=== PATIENT | female | born 1995 | race Caucasian/White ===

== ENCOUNTER 2016-08-13 09:17 | Inpatient (IN) | payer OTHER ==
[2016-08-13] VITALS (13 sets, daily range): BP systolic 91–126; BP diastolic 52–76; PULSE 62–99; RESP 18–20; Ht 152.4 cm; Wt 60.5 kg
[~2016-08-13] VITALS: Ht 152.4 cm; Wt 60.5 kg
[~2016-08-13 09:17] MED LIST: ACET-141 PO; IBUP-1542 PO; PREN1TAB62 PO
[2016-08-13] MEDS ORDERED: OXYTOCIN 30 UNITS/LR 500 ML IV PRN ×3 (09:30→17:30)
[2016-08-13] MEDS ORDERED: CEFAZOLIN 2 GM/50 ML (PMX) 50 ML IV SCH (09:30)
[2016-08-13] MEDS ORDERED: METHYLERGONOVINE 0.2 MG INJ IM PRN ×3 (09:30→17:30)
[2016-08-13] MEDS ORDERED: MISOPROSTOL 200 MCG TAB PR PRN ×3 (09:30→17:30)
[2016-08-13] MEDS ORDERED: OXYTOCIN 30 UNITS/LR 500 ML IV SCH ×2 (09:30→16:27)
[2016-08-13] MEDS ORDERED: CARBOPROST 250 MCG INJ IM PRN ×3 (09:30→17:30)
[2016-08-13 10:06] LABS: BASOPHILS % 0.2 % (0.0-2.0); EOSINOPHILS # 0.1 10^3/ul (0.0-0.5); EOSINOPHILS % 1.5 % (0.0-7.0); HEMATOCRIT 30.1 % (37.0-47.0); LYMPHOCYTES # 1.5 10^3/ul (0.8-2.9); LYMPHOCYTES % 17.8 % (15.0-51.0); MEAN CORPUSCULAR HEMOGLOBIN 27.4 pg (29.0-33.0); MEAN CORPUSCULAR HGB CONC 33.2 g/dl (32.0-37.0); MEAN CORPUSCULAR VOLUME 82.6 fl (82.0-101.0); MEAN PLATELET VOLUME 10.5 fl (7.4-10.4); MONOCYTE # 0.8 10^3/ul (0.3-0.9); MONOCYTES % 8.7 % (0.0-11.0); NEUTROPHIL # 6.2 10^3/ul (1.6-7.5); NEUTROPHILS % 71.8 % (39.0-77.0); PLATELET COUNT 157 10^3/UL (140-440); RED BLOOD COUNT 3.64 10^6/ul (4.20-5.40); RED CELL DISTRIBUTION WIDTH 16.2 % (11.5-14.5); UNCORRECTED WBC 8.7 10^3/ul (4.8-10.8); WHITE BLOOD COUNT 8.7 10^3/ul (4.8-10.8)
[2016-08-13 10:11] LABS: CONDITION 1; LH ANALYZER COMMENTS 1
[2016-08-13] MEDS: LACTATED RINGER'S 1,000 ML IV SCH ×2 (10:13→10:46)
[2016-08-13 10:22] LABS: INR 0.89; PT RATIO 0.9
[2016-08-13 10:23] LABS: PARTIAL THROMBOPLASTIN TIME 25.9 Sec (25.0-35.0)
[2016-08-13] MEDS ORDERED: CITRIC ACID/NA CITRATE 30 ML CUP ONE (12:14)
[2016-08-13] MEDS ORDERED: morphine SULFATE/PF (10 MG/10 ML) INJ ONE (12:47)
[2016-08-13] MEDS ORDERED: PHENYLephrine (100 MCG/ML) 5ML SYG ONE ×2 (12:48→13:38)
[2016-08-13] MEDS ORDERED: ONDANSETRON 4 MG INJ ONE (13:03)
[2016-08-13] MEDS ORDERED: EPHEDrine SULFATE 50 MG/5 ML SYG ONE (13:03)
[2016-08-13] MEDS ORDERED: MEPERIDINE 25 MG INJ IV PRN (13:30)
[2016-08-13] MEDS ORDERED: FENTAnyl 50 MCG/ML VIAL IV PRN ×2 (13:30)
[2016-08-13] MEDS ORDERED: NALOXONE (0.4 MG/ML) INJ IV PRN (13:30)
[2016-08-13] MEDS ORDERED: HYDROmorphONE 1 MG/ML SYG IV PRN ×2 (13:30)
[2016-08-13] MEDS ORDERED: ONDANSETRON 4 MG INJ IV PRN ×2 (13:30)
[2016-08-13] MEDS ORDERED: HYDROmorphONE (0.2 MG/ML) 10ML SYG IV PRN ×3 (13:30)
[2016-08-13] MEDS ORDERED: KETOROLAC 15 MG INJ IV ONE (13:30)
[2016-08-13] MEDS ORDERED: DIPHENHYDRAMINE 50 MG INJ IV PRN ×2 (13:30)
[2016-08-13] MEDS ORDERED: PROCHLORPERAZINE 10 MG INJ IV PRN (13:30)
[2016-08-13] MEDS ORDERED: KETOROLAC 30 MG INJ IV ONE (13:30)
[2016-08-13] MEDS ORDERED: FENTAnyl 50 MCG/ML VIAL ONE (13:30)
[2016-08-13] MEDS ORDERED: METOCLOPRAMIDE 10 MG INJ IV PRN (13:30)
[2016-08-13] MEDS ORDERED: CITRIC ACID/NA CITRATE 30 ML CUP PO ONE (14:00)
--- NOTE | 2016-08-13 14:26 | OPRPT ---
Intraop Record Datetime Report Generated by CPN: 08/13/2016 14:25 Datetime: 08/13/2016 14:08 Sequential Compression Device: Yes Datetime: 08/13/2016 10:08 OR Number: 2 TIMES/PROCEDURE Arrive OR: 08/13/2016 12:25 Depart OR: 08/13/2016 14:10 Anesthesia Start: 08/13/2016 12:25 Anesthesia End: 08/13/2016 14:08 Surgery Start: 08/13/2016 13:09 Surgery End: 08/13/2016 14:01 Preoperative Dx: SCHEDULED R C/S AND BTL Surgical Procedure: Section with BTL Postoperative Dx: POST OP R C/S AND BTL Uterine Incision: 08/13/2016 13:13 PERSONNEL Surgeon: Neto Martinez Scrub: Mariela Ascencio Anesthesia Care Provider: Dominic Dawn Care: See Delivery Summary for Infant Care Providers Anesthesia Type: Spinal ASA Level: II RISK FOR INJURY Mode of Arrival: Ambulate Procedure Time Out: Correct Patient Identity; Accurate Procedure Consent Form; Agreement on Procedu re to be Done; Correct Patient Position; Relevant Images and Results are Properly Labeled and Displa yed; Addressed Need to Administer Antibiotics or Fluids for Irrigation; Safety Precautions Based on Patient History or Medication Use; Allergies Reviewed Preoperative Information: Preoperative Checklist Reviewed; Allergies Reviewed; NPO Status Verified RISK FOR ANXIETY/KNOW DEFICIT Emotional Status: Calm/Relaxed Interventions: Provided Education Based on Age and Identified Needs; Communicated Patient Concerns to Appropriate Members of the Health Care Team; Explained Sequence of Events and Perioperative Routi ne; Evaluated Response to Instructions RISK FOR PAIN Pain Teaching: Instructed on Pain Scale Pain Scale: 0.0 Pain Location: NA PREOPERATIVE OUTCOMES Preoperative Outcomes: Verbalizes/Indicates Decreased Anxiety, Ability to [place], Understanding of Pr ocedure and Sequence of Events. Questions Answered; Demonstrates Adequate Pain Management; Verbaliz es Comfort Related to Transfer/Transport RISK FOR INFECTION Skin Pre-Operative Site: Intact Clip: Clip Clip Location: ABDOMINAL Prep: Yes Prep By: Love CHRISTIAN Prep Solution: Chlorohexadine Other Prep: RUSTAM PREP Catheter: Boyle Catheter Size: 16 Catheter Inserted By: Love CHRISTIAN Surgical Wound Class: I-Clean Dressing Type: Secured Gauze; Transparent Dressing Other Dressing Types: TELFA AND ABD PAPER TAPE Risk for Impaired Skin Integrity Position in OR: Supine Bony Prominences Protection: Arms Tucked/Padded Positioning Devices: N/A Risk for Hypothermia Warming Interventions: Warm Dumont(s) Warming Unit Temp Settin.0 Warming Device Number: #[id number] Warming Dumont Applied by: TATIANA LLOYD Risk for Injury Safety Straps Applied: Legs Sequential Compression Device: Yes Electrosurgical Unit: Yes Electrosurgical Unit Number: [id number] Ground Pad Location: Right Anterior Thigh Coag Number: 60 Cut Number: 60 1st Count Sponge Count: Correct Needle Count: Correct Blade Count: Correct Instrument Count: Correct 2nd Count Sponge Count: Correct Needle Count: Correct Blade Count: Correct Instrument Count: Correct 3rd Count Sponge Count: Correct Needle Count: Correct Blade Count: Correct Instrument Count: Correct Final Count Sponge Count 4: Correct Needle Count 4: Correct Blade Count 4: Correct Instrument Count 4: Correct Surgeon Acknowledged Count: Yes Final Count Resolution: Count Correct Intraoperative Data Equipment: Non-Invasive Blood Pressure; Pulse Oximeter; EKG; Temp Monitor; Warming Dumont Blood Products Given: N/A Implants/Prosthesis Implants/Prosthesis: N/A Grafts: N/A Irrigation Irrigants: Sterile H2O Irrigation Amount: 1000 Specimens Specimens: Yes Specimen Type: Fallopian Tubes Disposition: PATHOLOGY Cultures Cultures: N/A X-Ray X-Ray Taken: No Postoperative Skin: Warm; Dry Pain Scale: 0 Condition: Awake; Alert Temperature: 97.6 Operative Outcomes: Patient's Surgery Performed Using Aseptic Technique and in a Manner to Prevent Cross-Contamination; Skin Remains Smooth, Intact, Non-reddened, Non-irritated, Free of Bruising; Cor e Body Temperature Remains in Expected Range Other Operative Outcomes: RIGHT ANTERIOR THIGHBOVIE SITE CLEAR AND INTACT Transfer To: L_D Other: RR Report Given to: Aurora WELCH RN Datetime: 08/13/2016 09:52 Food Allergies/Reactions: none Latex Allergies/Reactions: No Latex Allergies Datetime: 07/28/2016 12:10 Drug Allergies/Reactions: No Known Allergy (10/29/2014)
--- NOTE | 2016-08-13 14:26 | DELSUM ---
Delivery Summary A-C Datetime Report Generated by CPN: 08/13/2016 14:25 DELIVERY PERSONNEL Examining Chair Assembler: Sebunnya, Phoebe MATERNAL INFORMATION Delivery Anesthesia: Spinal Medications in Delivery: SEE ANESTHESIA RECORD Estimated Blood Loss (ml): 600 Placenta Cultured: No Maternal Complications: None LABOR SUMMARY EDC: 08/19/2016 00:00 No. Babies in Womb: 1 Attempted: No Labor Anesthesia: None LABOR INFORMATION Reason for Induction: Not Applicable Oxytocin: N/A Group B Beta Strep: Negative Antibiotics # of Doses: 1 Antibiotics Time of Last Dose: 1255 Steroids Given: None Reason Steroids Not Administered: Not Applicable MEMBRANES Membranes Rupture Method: Artificial Rupture of Membranes: 08/13/2016 13:13 Length of Rupture (hr): 0.02 Amniotic Fluid Color: Clear Amniotic Fluid Amount: Moderate Amniotic Fluid Odor: Normal STAGES OF LABOR Stage 3 hr: 0 Stage 3 min: 1 CSECTION DELIVERY Primary Indication: Repeat Elective Secondary Indication: Repeat Elective CSection Urgency: Elective CSection Incidence: Repeat Labor: N/A Elective: Elective CSection Incision: Lower Uterine Transverse Sterilization Procedure: [place] BABY A INFORMATION Infant Delivery Date/Time: 08/13/2016 13:14 Method of Delivery: Born in Route : No : N/A Forceps: N/A Vacuum Extraction: N/A Shoulder Dystocia : N/A SHOULDER DYSTOCIA BABY A Infant Delivery Date/Time: 08/13/2016 13:14 PRESENTATION/POSITION BABY A Presentation: Cephalic Cephalic Presentation: Vertex Vertex Position: Left Occipital Anterior Breech Presentation: N/A PLACENTA INFORMATION BABY A Placenta Delivery Time : 08/13/2016 13:15 Placenta Method of Delivery: Manual Removal Placenta Status: Delivered SCORES BABY A Heart Rate 1 min: >100 bpm Resp Effort 1 min: Good Cry Reflex Irritability 1 min: Cough/Sneeze/Pulls Away Muscle Tone 1 min: Active Motion Color 1 min: Blue/Pale Resuscitation Effort 1 min: Tactile Stimulation SCORE 1 MIN: 8 Heart Rate 5 min: >100 bpm Resp Effort 5 min: Good Cry Reflex Irritability 5 min: Cough/Sneeze/Pulls Away Muscle Tone 5 min: Active Motion Color 5 min: Body [place], Extremit Blue Resuscitation Effort 5 min: Tactile Stimulation SCORE 5 MIN: 9 INFANT INFORMATION BABY A Gestational Age at Delivery: 39.1 Gestational Status: Full Term- 39- 40.6 Weeks Infant Outcome : Liveborn Condition : Stable Sex: Female IDENTIFICATION/MEDS BABY A ID Band Number: [id number] ID Band Location: Right Leg; Left Arm Sensor Applied: Yes Sensor Number: [id number] Sensor Location : Cord Clamp Vitamin K Given : Not Given Erythromycin Given: Not Given WEIGHT/LENGTH BABY A Infant Birthweight (gm): 3050 Infant Weight (lb): 6 Weight (oz): 12 Length (in): 19.25 Infant Length (cm): 48.90 CORD INFORMATION BABY A No. Cord Vessels: 3 Nuchal Cord : N/A Nuchal Cord- Other: 0 True Knot: 0 Cord Blood Taken: Yes Banking/Donate Info: NO Infant Suction: Mouth; Nose ASSESSMENT BABY A Infant Complications: None Physical Findings at Delivery: Within Normal Limits Infant Respirations: Appears Normal Delivery Consultant/ALS Called : No Infant Care By: Aurora WELCH RN Transferred To: Remains with Mother
--- NOTE | 2016-08-13 16:18 | HP ---
Date/Time of Note Date/Time of Note DATE: 08/13/16 TIME: 12:49 OB - History Hx of Present Free Text/Dictation 21 years old 39 weeks and 1 day with EDC of August 19, 2016, history of previous admitted for repeat , patient also had signed the consent form for volunteer sterilization bilateral tubal ligation at the time of her section regarding this procedure considering the age of the patient she is only 21 the concern was extensively discussed with the patient and possibility of future desire for another child was also discussed but patient is firm on her decision ,other risks involved with tubal ligation including failure rate, increased risk of ectopic also explained, knowing all he above, patient is being prepared for repeat and bilateral tubal ligation, complication of surgery including but not limited to bowel and bladder injury hemorrhage, .hematoma wound infection explained . Estimated Due Date: Aug 15, 2016 : 2 Para: 1 Care: Good Care Ultrasounds: No ultrasounds Obstetrical Complications: None Medical Complications: None Past Family/Social History * Past Medical, Surgical, Family and Obstetric Histories reviewed from chart. Rubella: immune RPR/VDRL: Negative GBS Status: Negative HBsAG: Negative OB Admission Exam Vital Signs Vital Signs Vital Signs Date Time Temp Pulse Resp B/P Pulse Ox O2 Delivery O2 Flow Rate FiO2 08/13/16 09:50 97.9 80 18 108/61 Room Air Last 72 hours Lab Results CBC & BMP 08/13/16 09:45 SHAKA SANDOVAL MD Aug 13, 2016 13:06
--- NOTE | 2016-08-13 16:25 | OPPN ---
Date/Time of Note Date/Time of Note DATE: 08/13/16 TIME: 16:20 Operative/Procedure Note 39week previous c section request for bilateral tubal ligation Pre-Operative Diagnosis Same as above Post-Operative Diagnosis Same as above Surgeon: SHAKA SANDOVAL MD Sponsorship Manager: ISABEL WARREN MD Anesthesiologist: CHANI SORENSEN Findings Live baby boy 8 and 9 Estimated blood loss: other (600-700 mL) Specimens: Not Applicable Anesthesia type: spinal SHAKA SANDOVAL MD Aug 13, 2016 16:24
[2016-08-13] MEDS ORDERED: ACETAMINOPHEN/CODEINE #3 TAB PO PRN ×4 (16:30→17:30)
[2016-08-13] MEDS ORDERED: LANOLIN 7 GM TUBE TOP PRN ×2 (16:30→17:30)
[2016-08-13] MEDS ORDERED: CEFAZOLIN 1 GM/50 ML (PMX) 50 ML IVPB SCH ×2 (16:30→17:30)
[2016-08-13] MEDS ORDERED: OXYCODONE/ACETAMINOPHEN (5/325) TAB PO PRN ×2 (16:30)
[2016-08-13] MEDS: OXYTOCIN 30 UNITS/LR 500 ML IV SCH ×2 (17:49→23:52)
[2016-08-13] MEDS ORDERED: IBUPROFEN 600 MG TAB PO SCH (18:00)
[2016-08-13] MEDS: IBUPROFEN 600 MG TAB PO SCH (18:00)
[2016-08-13] MEDS ORDERED: SENNA/DOCUSATE NA (8.6MG/50MG) TAB PO SCH (21:00)
[2016-08-13] MEDS: SENNA/DOCUSATE NA (8.6MG/50MG) TAB PO SCH (21:00)
[2016-08-14] VITALS: BP 100/60; PULSE 88; RESP 20
[2016-08-14] MEDS: OXYTOCIN 30 UNITS/LR 500 ML IV SCH ×6 (01:03→21:03)
[2016-08-14] MEDS: KETOROLAC 30 MG INJ IV PRN ×2 (01:58→10:08)
[2016-08-14 04:00] VITALS: BP 96/53; PULSE 84; RESP 20
[2016-08-14 07:55] LABS: BASOPHILS % 0.1 % (0.0-2.0); EOSINOPHILS # 0.1 10^3/ul (0.0-0.5); EOSINOPHILS % 0.8 % (0.0-7.0); HEMATOCRIT 24.3 % (37.0-47.0); LYMPHOCYTES # 1.1 10^3/ul (0.8-2.9); LYMPHOCYTES % 14.6 % (15.0-51.0); MEAN CORPUSCULAR HEMOGLOBIN 27.6 pg (29.0-33.0); MEAN CORPUSCULAR HGB CONC 33.1 g/dl (32.0-37.0); MEAN CORPUSCULAR VOLUME 83.4 fl (82.0-101.0); MEAN PLATELET VOLUME 10.3 fl (7.4-10.4); MONOCYTE # 0.5 10^3/ul (0.3-0.9); MONOCYTES % 6.2 % (0.0-11.0); NEUTROPHIL # 6.2 10^3/ul (1.6-7.5); NEUTROPHILS % 78.3 % (39.0-77.0); PLATELET COUNT 130 10^3/UL (140-440); RED BLOOD COUNT 2.92 10^6/ul (4.20-5.40); RED CELL DISTRIBUTION WIDTH 16.1 % (11.5-14.5); UNCORRECTED WBC 7.9 10^3/ul (4.8-10.8); WHITE BLOOD COUNT 7.9 10^3/ul (4.8-10.8)
[2016-08-14 08:08] LABS: CONDITION 1; LH ANALYZER COMMENTS 1
[2016-08-14 08:15] VITALS: BP 87/48; PULSE 74; RESP 19
[2016-08-14] MEDS: SENNA/DOCUSATE NA (8.6MG/50MG) TAB PO SCH (09:23)
[2016-08-14] MEDS: OXYCODONE/ACETAMINOPHEN (5/325) TAB PO PRN ×2 (14:01→20:02)
[2016-08-14 16:00] VITALS: BP 96/61; PULSE 90; RESP 18
--- NOTE | 2016-08-14 16:37 | OPR ---
DATE OF OPERATION: 08/14/2016 PREOPERATIVE DIAGNOSES: 1. Intrauterine at 39 weeks' gestation. 2. History of previous section. 3. Request for bilateral tubal ligation. POSTOPERATIVE DIAGNOSES: 1. Intrauterine at 39 weeks' gestation. 2. History of previous section. 3. Request for bilateral tubal ligation. PROCEDURE: Repeat section, bilateral tubal ligation. SURGEON: Shaka Martinez MD VOCATIONAL COUNSELOR: Tc Minor MD ANESTHESIA: Spinal. ANESTHESIOLOGIST: Dominic Dawn MD FINDINGS: Live baby boy with 8 and 9. DETAILS OF THE PROCEDURE: Under satisfactory spinal anesthesia, the patient was prepped and draped and placed in supine position, tilted to the left. Pfannenstiel incision was made. Old scar was re moved. Incision carried through the subcutaneous tissue. Bleeders brought under control with elect rocautery. Fascia incised to the length of incision. Rectus muscle divided in midline. Peritoneum entered through a transverse incision. Exploration of abdomen revealed a gravid uterus, normal chyna earing tubes and ovaries and extremely thinned out lower segment of the uterus. Bladder flap was de veloped. Transverse incision was made in the lower segment of the uterus. Amniotic sac ruptured. Clear amniotic fluid noted. Live baby boy was delivered from the LOP position. Nasal oropharyngeal suction was performed. Baby handed to the team for immediate attention. The patient rece ived 20 units of Pitocin. Placenta delivered manually intact. Uterine cavity cleaned with wet spon ge and drainage established. Uterus closed in 2 layers using Monocryl #1 in continuous fashion. Bilateral tubal ligation began by identifying the fimbria and ampullary section of the right fallopi an tube. Suture material used #0 plain catgut was reinforced with the same suture material and that portion of the tube was excised and submitted for the pathology. The same procedure performed for the opposite side. Peritoneal cavity was irrigated with warm saline. Sponge, needle and instruments reported to be cor rect. Abdominal peritoneum closed with 2-0 chromic catgut continuously. Rectus muscle approximated with a few interrupted 2-0 chromic catgut. Fascia closed with #1 PDS in a continuous fashion. Sub cutaneous tissue approximated with 2-0 chromic catgut. The skin closed with sherrie. Estimated blo od loss 600 mL. Urine bag contained 200 mL of slightly bloody-tinged urine, which was the same colo r prior to the . Dictated By: SHAKA ALEGRIA/FERN Conf#: [id number] DID#: [id number]
[2016-08-14] MEDS ORDERED: IBUPROFEN 600 MG TAB PO SCH (18:00)
[2016-08-14] MEDS: IBUPROFEN 600 MG TAB PO SCH (18:00)
[2016-08-14 20:00] VITALS: BP 101/55; PULSE 99; RESP 18
[2016-08-15] MEDS: SENNA/DOCUSATE NA (8.6MG/50MG) TAB PO SCH ×3 (00:34→20:00)
[2016-08-15] MEDS: IBUPROFEN 600 MG TAB PO SCH ×4 (00:34→17:19)
[2016-08-15] MEDS: OXYTOCIN 30 UNITS/LR 500 ML IV SCH ×3 (00:36→09:03)
[2016-08-15 04:00] VITALS: BP 109/60; PULSE 82; RESP 18
[2016-08-15 08:15] VITALS: BP 100/58; PULSE 79; RESP 18
[2016-08-15] MEDS: OXYCODONE/ACETAMINOPHEN (5/325) TAB PO PRN ×2 (11:05→20:00)
--- NOTE | 2016-08-15 12:45 | PN ---
Date/Time of Note Date/Time of Note DATE: 08/15/16 TIME: 12:44 OB Subjective Subjective Subjective Post day 2 Afebrile vital sign a stable abdomen soft incision dry lochia normal bowel sound present oh bowel movement enema recommended SHAKA SANDOVAL MD Aug 15, 2016 12:45
[2016-08-15] MEDS ORDERED: NA PHOSPHATE/BIPHOS 133 ML ENEMA PR ONE (13:00)
[2016-08-15] MEDS ORDERED: SALINE 0.65% 45 ML NAS SPRAY NASAL PRN (14:30)
[2016-08-15 16:40] VITALS: BP 100/61; PULSE 84; RESP 18
[2016-08-15 20:00] VITALS: BP 102/56; PULSE 74; RESP 18
[2016-08-16] MEDS: IBUPROFEN 600 MG TAB PO SCH ×3 (00:25→11:55)
[2016-08-16 04:10] VITALS: BP 90/53; PULSE 81; RESP 18
[2016-08-16 07:30] VITALS: BP 103/56; PULSE 78; RESP 19
[2016-08-16] MEDS: SENNA/DOCUSATE NA (8.6MG/50MG) TAB PO SCH (08:49)
[2016-08-16] MEDS ORDERED: DIPHTH/TET/ACEL PERTUSS (ADULT) 0.5 ML VIAL IM* ONE ×2 (09:00)
[2016-08-16] MEDS ORDERED: INFLUENZA VIRUS VACCINE 0.5 ML SYG IM* ONE (09:00)
[2016-08-16] MEDS: OXYCODONE/ACETAMINOPHEN (5/325) TAB PO PRN (09:24)
--- NOTE | 2016-08-16 11:09 | DS ---
Date/Time of Note Date/Time of Note DATE: 08/16/16 TIME: 11:06 Obstetrical Discharge Record Final Diagnosis Final Diagnosis: Term delivered Section Section: Repeat Condition on Discharge Physical Assessment Last Vitals: Date 3 post and lateral tubal ligation Afebrile vital sign stable abdomen soft uterus firm lochia normal extremity normal incision dry patient discharged home with prescription of analgesics an appointment to the office in 1 week to DC sherrie Voiding: Yes Bowel Movement: Yes Breast: Soft, non-tender, Filling Fundus: Firm Abdomen and Incision: Dry healing well free of inflammation Calf Tenderness: No Patient Condition: Good SHAKA SANDOVAL MD Aug 16, 2016 11:08
== END 2016-08-16 14:40 | disposition home or self-care (01) | DRG 766 ==
LOC: L-D 09:17 → PP1 16:45
PROVIDERS: ADMIT Obstetrics & Gynecology; ATTEND Obstetrics & Gynecology
PROC: 10D00Z1 Extraction of Products of Conception, Low, Open Approach (ICD-10-PCS; principal; 2016-08-14)
PROC: 0UL70ZZ Occlusion of Bilateral Fallopian Tubes, Open Approach (ICD-10-PCS; 2016-08-14)
DX: O34.211 Maternal care for low transverse scar from previous cesarean delivery (principal); Z30.2 Encounter for sterilization; Z3A.39 39 weeks gestation of pregnancy; Z37.0 Single live birth
CPT/HCPCS: 85025; 85610; 85730; 86592; 86850; 86900; 86901; 87340; 88302; 90715; 99464; J0690; J1885; J2274; J2370; J2405; J2590; J3010; J7120

== ENCOUNTER 2016-08-30 17:08 | Inpatient (IN) | END 2016-08-31 17:46 | disposition home or self-care (01) | DRG 776 | DX: O92.79 Other disorders of lactation (principal) ==